=== PATIENT | female | born 1990 | race Two or more races ===

== ENCOUNTER → 2023-06-02 | Outpatient (CLI) | payer OTHER ==
--- NOTE | 2023-06-02 11:29 | XR ---
EXAMINATION TYPE: XR chest 2V DATE OF EXAM: 06/02/2023 COMPARISON: NONE HISTORY: Chest pain TECHNIQUE: Frontal and lateral views of the chest are obtained. FINDINGS: There is no focal air space opacity. No evidence for pneumothorax. No pleural effusion. The cardiac silhouette size is within normal limits. The osseous structures are grossly intact. IMPRESSION: 1. No acute cardiopulmonary process.
== END | disposition home or self-care (01) ==
LOC: RADXRMAIN 10:55
PROVIDERS: ATTEND Internal Medicine Hematology & Oncology
DX: R07.9 Chest pain, unspecified (principal); D75.1 Secondary polycythemia; R06.02 Shortness of breath; R51.9 Headache, unspecified
CPT/HCPCS: 71046

== ENCOUNTER → 2024-03-08 | Outpatient (CLI) | payer OTHER ==
--- NOTE | 2024-03-08 15:17 | US ---
EXAMINATION TYPE: US thyroid st tissue head/neck DATE OF EXAM: 03/08/2024 COMPARISON: NONE CLINICAL INDICATION: Female, 34 years old with history of E03.9 ACQUIRED HYPOTHYROIDISM; On thyroid m eds GLAND SIZE: Right Lobe: 4.9 x 1.5 x 1.7 cm Overall Parenchyma: heterogeneous Left Lobe: 4.8 x 1.5 x 1.6 cm Overall Parenchyma: heterogeneous Isthmus Thickness: 0.5 cm NODULES RIGHT: # of nodules measured on right: 0 LEFT: # of nodules measured on left: 0 ISTHMUS: # of nodules measured in the isthmus: 0 Bilateral neck scanned, no evidence of lymphadenopathy. IMPRESSION: Borderline sized thyroid gland with heterogeneous parenchyma. Consider goiter or diffuse thyroiditis. No discrete nodules.
--- NOTE | 2024-03-08 15:21 | US ---
EXAMINATION TYPE: US pelvic complete DATE OF EXAM: 03/08/2024 COMPARISON: NONE CLINICAL INDICATION: Female, 34 years old with history of N92.6 IRREGULAR MENSES; Irregular menses TECHNIQUE: Transabdominal sonographic images of the pelvis were acquired. Date of LMP: 03/06/2024, EXAM MEASUREMENTS: Uterus: 9.6 x 5.6 x 3.8 cm Endometrial Stripe: 0.5 cm Right Ovary: 3.1 x 1.9 x 1.6 cm Left Ovary: 2.7 x 1.4 x 1.6 cm 1. Uterus: Anteverted and otherwise no gross abnormal. 2. Endometrium: wnl 3. Right Ovary: follicles seen 4. Left Ovary: follicles seen 5. Bilateral Adnexa: wnl 6. Posterior cul-de-sac: no free fluid IMPRESSION: 1. Thin endometrial stripe at 5 mm. 2. Follicular change in the ovaries. 3. No specific abnormality seen.
== END | disposition home or self-care (01) ==
LOC: RADUSWWP 14:00
PROVIDERS: ATTEND Family Medicine
DX: N92.6 Irregular menstruation, unspecified (principal); E03.9 Hypothyroidism, unspecified; E06.9 Thyroiditis, unspecified
CPT/HCPCS: 76536; 76856